=== PATIENT | female | born 1960 | race Caucasian/White ===

== ENCOUNTER 2017-05-08 16:35 | Observation (INO) | payer OTHER ==
[2017-05-08] MEDS: ONDANSETRON HCL 4 MG/2 ML VIAL IV PUSH (18:30)
[2017-05-08] MEDS: ACETAMINOPHEN/HYDROcodone 325 MG/5 MG TAB PO (18:30)
[2017-05-08 18:31] LABS: AUTOMATED NEUTROPHIL # 7.6 TH/MM3 (1.8-7.7); BASOPHIL % 0.4 % (0.0-2.0); EOSINOPHIL # 0.1 TH/MM3 (0-0.4); EOSINOPHIL % 0.8 % (0.0-4.0); HEMATOCRIT 39.9 % (35.0-46.0); HEMO FLAGS DIFF FINAL; HEMOGLOBIN 13.9 GM/DL (11.6-15.3); LYMPH % 19.2 % (9.0-44.0); MEAN CELL VOLUME 87.3 FL (80.0-100.0); MEAN CORPUSCULAR HEMOGLOBIN 30.3 PG (27.0-34.0); MEAN CORPUSCULAR HGB CONC 34.7 % (32.0-36.0); MEAN PLATELET VOLUME 8.3 FL (7.0-11.0); MONO % 6.4 % (0.0-8.0); MONOCYTE # 0.7 TH/MM3 (0-0.9); NEUT % 73.2 % (16.0-70.0); PLATELET COUNT 291 TH/MM3 (150-450); RED BLOOD COUNT 4.57 MIL/MM3 (4.00-5.30); RED CELL DISTRIBUTION WIDTH 13.2 % (11.6-17.2); WHITE BLOOD COUNT 10.4 TH/MM3 (4.0-11.0)
[2017-05-08 18:55] LABS: ALBUMIN 3.8 GM/DL (3.4-5.0); ANION GAP 7 MEQ/L (5-15); AST (GOT) 15 U/L (15-37); BICARBONATE 28.4 MEQ/L (21.0-32.0); BLOOD UREA NITROGEN 14 MG/DL (7-18); CALCIUM 9.1 MG/DL (8.5-10.1); CHLORIDE 101 MEQ/L (98-107); GLOMERULAR FILTRATION RATE 86 ML/MIN (>89); GLUCOSE,RANDOM 90 MG/DL (74-106); LIPASE 144 U/L (73-393); MAGNESIUM 2.3 MG/DL (1.5-2.5); POTASSIUM 4.2 MEQ/L (3.5-5.1); SODIUM (NA) 136 MEQ/L (136-145)
[2017-05-08 18:56] LABS: ALT (GPT) 38 U/L (10-53)
[2017-05-08 18:59] LABS: ALKALINE PHOSPHATASE 89 U/L (45-117); TOTAL BILIRUBIN ADULT 0.2 MG/DL (0.2-1.0); TROPONIN I LESS THAN 0.02 NG/ML (0.02-0.05)
[2017-05-08 19:00] LABS: CREATINE KINASE 29 U/L (26-192)
[2017-05-08 19:18] LABS: BACTERIA, URINE RARE /hpf; BILIRUBIN, URINE NEG (NEG); BLOOD, URINE NEG (NEG); GLUCOSE,URINE NEG (NEG); KETONE, URINE NEG (NEG); NITRITE,URINE NEG (NEG); SQUAMOUS EPITHELIAL CELL URINE <1 /hpf (0-5); URINE COLOR LIGHT-YELLOW (YELLW/STRAW); URINE LEUKOCYTE ESTERASE NEG (NEG)
[2017-05-08 19:26] LABS: COMMENT (UR) CULT NOT INDICATED; CULTURE IF INDICATED CULT NOT INDICATED
[2017-05-08] MEDS: diphenhydrAMINE HCL 25 MG CAP PO (21:09)
[2017-05-08] MEDS: PANTOPRAZOLE SODIUM 40 MG VIAL IV PUSH (21:09)
[2017-05-08 22:27] LABS: D-DIMER 0.38 MG/L FEU (0.00-0.50)
[2017-05-08] MEDS ORDERED: SODIUM CHLORIDE 0.9% FLUSH 10 ML FLUSH IV FLUSH (23:00)
[2017-05-09 02:49] LABS: TROPONIN I LESS THAN 0.02 NG/ML (0.02-0.05)
[2017-05-09 02:54] LABS: CREATINE KINASE 22 U/L (26-192)
[2017-05-09 05:25] LABS: TROPONIN I LESS THAN 0.02 NG/ML (0.02-0.05)
[2017-05-09 05:27] LABS: CREATINE KINASE 21 U/L (26-192)
[2017-05-09] MEDS ORDERED: ACETAMINOPHEN 500 MG CPLT PO (09:00)
[2017-05-09] MEDS ORDERED: NITROGLYCERIN 0.4 MG SL 25 TABS/BTL SL (09:00)
[2017-05-09] MEDS ORDERED: ONDANSETRON HCL 4 MG/2 ML VIAL IV PUSH (09:00)
[2017-05-09] MEDS: ASPIRIN 325 MG TAB PO (10:08)
[2017-05-09] MEDS: PANTOPRAZOLE SOD 40 MG DELAYED RELEASE TAB PO (10:08)
[2017-05-09] MEDS: LIDOCAINE VISCOUS 2% SOLN 15 ML UDC SWISH-SWAL (10:09)
[2017-05-09] MEDS: ALUMINUM/MAGNESIUM/SIMETH 30 ML CUP PO (10:09)
[2017-05-09] MEDS: SODIUM CHLORIDE 0.9% FLUSH 10 ML FLUSH IV FLUSH ×2 (10:09→21:32)
[2017-05-09] MEDS: REGADENOSON INJ 0.4 MG/5 ML SYR (11:15)
[2017-05-09] MEDS: KETOROLAC TROMETHAMINE 30 MG/ML (IVP) VIAL IV PUSH (11:45)
[2017-05-09] MEDS ORDERED: CALCIUM CARBONATE 500 MG CHEWABLE TAB CHEW (14:15)
[2017-05-09] MEDS: ACETAMINOPHEN/HYDROcodone 325 MG/7.5 MG TAB PO (16:43)
[2017-05-09] MEDS: PANTOPRAZOLE SODIUM 40 MG VIAL IV PUSH (21:33)
[2017-05-09] MEDS: CARISOPRODOL 350 MG TAB PO (21:41)
[2017-05-09] MEDS: TOLTERODINE TARTRATE 4 MG CAP LA PO (21:43)
[2017-05-10] MEDS ORDERED: METOPROLOL TARTRATE 25 MG TAB PO (04:15)
[2017-05-10] MEDS ORDERED: SODIUM CHLORID 0.9% 500 ML IV (04:15)
[2017-05-10] MEDS ORDERED: LACTATED RINGER'S 1000 ML IV (04:15)
[2017-05-10] MEDS ORDERED: CHLORHEXIDINE GLUCONATE 2 % 1 PACK (2 CLOTHS) TOPICAL (04:15)
[2017-05-10] MEDS: LEVOTHYROXINE SODIUM 125 MCG TAB PO (05:49)
[2017-05-10 07:42] LABS: FREE T4 1.06 NG/DL (0.76-1.46)
[2017-05-10] MEDS: ACETAMINOPHEN/HYDROcodone 325 MG/7.5 MG TAB PO ×2 (08:26→14:38)
[2017-05-10] MEDS: SODIUM CHLORIDE 0.9% FLUSH 10 ML FLUSH IV FLUSH (08:26)
[2017-05-10] MEDS: SUCRALFATE 1 GM/10 ML CUP PO (11:38)
== END 2017-05-10 15:29 | disposition home or self-care (01) ==
LOC: NEPFCDU 05-09 00:14 → NEPC 16:35 → NEDA 22:50
DX: R07.89 Other chest pain (principal); K21.0 Gastro-esophageal reflux disease with esophagitis; R11.2 Nausea with vomiting, unspecified; R10.13 Epigastric pain; R12 Heartburn; R06.00 Dyspnea, unspecified; R06.02 Shortness of breath; R50.9 Fever, unspecified; M54.5 Low back pain; G89.29 Other chronic pain; I25.10 Atherosclerotic heart disease of native coronary artery without angina pectoris; K44.9 Diaphragmatic hernia without obstruction or gangrene; K59.00 Constipation, unspecified; R42 Dizziness and giddiness; I20.9 Angina pectoris, unspecified; E03.9 Hypothyroidism, unspecified; Z87.891 Personal history of nicotine dependence
CPT/HCPCS: 00731; 71046; 74176; 78452; 80053; 81001; 82550; 83690; 83735; 84439; 84443; 84484; 85025; 85379; 85610; 85730; 88305; 88305-59; 88312; 93005; 93017; 96372; 96374; 96375; 96376; 99285-25